=== PATIENT | female | born 1990 | race Caucasian/White ===

== ENCOUNTER → 2018-12-18 08:55 | Outpatient (CLI) | payer OTHER, SELFPAY ==
[2017-04-26 20:30] VITALS: BMI 30.9
[2018-12-18 10:13] LABS: Erythrocyte Sedimentation Rate 4 mm/hr (0-20)
[2018-12-18 10:15] LABS: Absolute Lymphocyte Count 2.41 X10^3/ul (0.83-4.51); Absolute Neutrophil Count 5.9 X10^3/uL (2.0-7.7); Basophil# 0.05 X10^3/uL; Basophil% 0.5 % (0-1); Eosinophil# 0.23 X10^3/uL; Eosinophils% 2.4 % (0-5); Hematocrit 38.2 % (37-47); Hemoglobin 12.3 g/dl (12.0-15.0); Lymphocyte # 2.41 X10^3/ul (4.0); Lymphocyte % 25.3 % (19-41); Mean Corp Hgb Conc 32.2 g/gl (32-36); Mean Corpuscular Hgb 29.9 pg (27.0-32.0); Mean Corpuscular Volume 92.7 fL (81-99); Mean Platelet Vol. 11.3 fl (6.2-12.0); Monocyte# 0.93 X10^3/uL; Monocyte% 9.8 % (0-10); Neutrophil % 61.9 % (47-70); Platelet Count 263 K/mm3 (150-450); RBC Distribution Width CV 13.8 % (11.6-14.6); RBC Distribution Width SD 46.9 fl (35.1-43.9); Red Blood Count 4.12 M/mm3 (4.2-5.4); White Blood Count 9.5 K/mm3 (4.4-11.0)
[2018-12-18 10:21] LABS: POSITIVE COUNT NO; POSITIVE DIFFERENTIAL NO; POSITIVE MORPHOLOGY NO
[2018-12-18 10:41] LABS: ALB/GLOB Ratio 1.1 RATIO (0.9-2.4); AST(SGOT) 16 U/L (15-37); Alanine Aminotransfer ALT/SGPT 20 U/L (13-56); Alkaline Phosphatase 65 U/L (45-117); Anion Gap 9 (5-15); BUN 15 mg/dL (7-18); BUN/Creat Ratio 18.2 RATIO (10-20); CRP < 2.90 mg/L (0.0-3.0); Calcium,Total 8.6 mg/dL (8.5-10.1); Chloride 106 mmol/L (98-107); Creatinine, Serum 0.82 mg/dL (0.55-1.02); EST Glomerular Filtration Rate 86 mL/min (>60); Est Glom Filt Rate - Afr Amer 104 mL/min (>60); Estradiol 295.8 pg/mL; Follicle Stimulating Hormone 5.3 mIU/mL; Free T3 2.7 pg/mL (2.18-3.98); Globulin 3.6 g/dL (2.2-4.2); Glucose 82 mg/dL (74-106); Iron 61 ug/dL (50-170); Luteinizing Hormone 18.8 mIU/mL; Potassium 3.7 mmol/L (3.5-5.1); Protein, Total 7.6 g/dL (6.4-8.2); Sodium Level 143 mmol/L (136-145); T4 Free Direct 0.81 ng/dL (0.76-1.46); Thyroid Stim Hormone (TSH) 0.95 uIU/mL (0.358-3.74)
[2018-12-18 10:43] LABS: Vitamin B12 1039 pg/mL (211-911); Vitamin D,25 Hydroxy 16.7 ng/mL (29.95-100.01)
== END ==
PROVIDERS: Family Provider Family Medicine; PCP Family Medicine; Referring Provider Family Medicine; Visit Provider Family Medicine
DX: N92.6 Irregular menstruation, unspecified (principal); R53.83 Other fatigue
CPT/HCPCS: 80053; 82306; 82533; 82607; 82670; 83001; 83002; 83540; 84403; 84439; 84443; 84481; 85025; 85652; 86140

== ENCOUNTER → 2019-07-24 11:41 | Outpatient (CLI) | payer OTHER, SELFPAY ==
[2017-04-26 20:30] VITALS: BMI 30.9
--- NOTE | 2019-07-24 11:46 | RAD_ITS ---
STUDY: X-RAY - CERVICAL SPINE REASON FOR EXAM: Female, 29 years old. Pain radiating to the left shoulder. TECHNIQUE: 5 view(s) of the cervical spine were obtained. COMPARISON: None FINDINGS: Normal anterior atlantoaxial articulation. Normal odontoid process. There is reversal of the normal cervical lordosis. Normal vertebral bodies and endplates. Normal disc space heights. Normal visualized intervertebral neuroforamina. The soft tissue structures are unremarkable. There is no demonstrated fracture of the cervical spine. RAD/Cerv Spine 4 or 5 Views IMPRESSION: Reversal of physiological cervical lordosis which may be due to muscular spasm. Otherwise normal x-ray examination of the visualized cervical spine. Electronically Signed: Dunia Veliz MD at 1:35 EST , Service support ,
--- NOTE | 2019-07-24 12:00 | RAD_ITS ---
STUDY: X-RAY - LEFT SHOULDER REASON FOR EXAM: Female, 29 years old. Pain. TECHNIQUE: 4 view(s) of the shoulder. COMPARISON: None. FINDINGS: Normal glenohumeral articulation. Normal acromioclavicular joint. Normal acromion. Normal humeral head and visualized proximal humerus. The soft tissue structures are unremarkable. There is no demonstrated fracture. Normal visualized pulmonary apex. RAD/Shoulder min 2 Views IMPRESSION: Normal x-ray examination of the shoulder. Electronically Signed: Dunia Veliz MD at 1:35 EST , Service support ,
== END ==
PROVIDERS: Family Provider Family Medicine; PCP Family Medicine; Referring Provider Nurse Practitioner Family; Visit Provider Nurse Practitioner Family
DX: M25.512 Pain in left shoulder (principal)
CPT/HCPCS: 72050; 73030

== ENCOUNTER → 2019-08-15 11:22 | Outpatient (CLI) | payer OTHER, SELFPAY ==
[2017-04-26 20:30] VITALS: BMI 30.9
--- NOTE | 2019-08-15 11:25 | RAD_ITS ---
STUDY: X-RAY CHEST REASON FOR EXAM: Female, 29 years old. Sharp stabbing chest pain. TECHNIQUE: 2 views COMPARISON: Prior chest radiograph of November 26, 2014 FINDINGS: The lungs are clear and expanded. There is no demonstrated pleural abnormality. Normal size heart. Normal mediastinum and sandi. Normal visualized pulmonary arteries. Normal visualized aortic arch and descending thoracic aorta. Normal visualized thoracic spine. Normal visualized ribs, clavicles, and shoulders. There is no demonstrated abnormality of the visualized soft tissue structures of the upper abdomen. RAD/Chest PA and Lateral IMPRESSION: Normal x-ray examination of the chest. Electronically Signed: Kristy Dc MD at 21:25 EST , Service support ,
[2019-08-15 14:11] LABS: Hematocrit 38.2 % (37-47); Hemoglobin 12.4 g/dL (12.0-15.0); Mean Corp Hgb Conc 32.5 g/dL (32-36); Mean Corpuscular Hgb 30.3 pg (27.0-32.0); Mean Corpuscular Volume 93.4 fL (81-99); Mean Platelet Vol. 12.1 fl (6.2-12.0); Platelet Count 252 K/mm3 (150-450); RBC Distribution Width CV 13.7 % (11.6-14.6); RBC Distribution Width SD 47.1 fl (35.1-43.9); Red Blood Count 4.09 M/mm3 (4.2-5.4); White Blood Count 7.5 K/mm3 (4.4-11.0)
[2019-08-15 14:25] LABS: D-Dimer Quantitative (DVT/PE) 0.75 FEU/ug/m (0.27-0.49)
[2019-08-15 14:30] LABS: ALB/GLOB Ratio 1.3 RATIO (0.9-2.4); AST(SGOT) 13 U/L (15-37); Alanine Aminotransfer ALT/SGPT 17 U/L (13-56); Albumin, Serum 4.3 g/dL (3.2-5.0); Alkaline Phosphatase 59 U/L (45-117); Anion Gap 5 (5-15); BUN 16 mg/dL (7-18); BUN/Creat Ratio 17.2 RATIO (10-20); Calcium,Total 8.6 mg/dL (8.5-10.1); Chloride 107 mmol/L (98-107); Creatinine, Serum 0.93 mg/dL (0.55-1.02); EST Glomerular Filtration Rate 75 mL/min (>60); Est Glom Filt Rate - Afr Amer 90 mL/min (>60); Globulin 3.4 g/dL (2.2-4.2); Glucose 78 mg/dL (74-106); Potassium 3.6 mmol/L (3.5-5.1); Protein, Total 7.7 g/dL (6.4-8.2); Sodium Level 139 mmol/L (136-145)
== END ==
PROVIDERS: Family Provider Family Medicine; PCP Family Medicine; Referring Provider Family Medicine; Visit Provider Family Medicine
DX: R07.9 Chest pain, unspecified (principal)
CPT/HCPCS: 36415; 71046; 80053; 84484; 85027; 85379

== ENCOUNTER → 2019-08-15 17:05 | Outpatient (CLI) | payer OTHER, SELFPAY ==
[2019-08-15 16:32] VITALS: BMI 28.5
--- NOTE | 2019-08-15 17:10 | CT_ITS ---
STUDY: CTA CHEST REASON FOR EXAM: Female, 29 years old. Elevated d-dimer and left chest wall pain for one week. Recent long distance travel. RADIATION DOSAGE (If Supplied By Facility): CTDIvol = ( 11.27 ) mGy, DLP = ( 350.43 ) mGycm TECHNIQUE: The examination was performed with the intravenous administration of IV 100mL Isovue-370. Post-processing of the angiographic images was performed, with multiplanar reformation and 3D reconstruction. Individualized dose optimization techniques were used for this CT. COMPARISON: Prior chest radiograph of August 15, 2019 FINDINGS: Normal enhancement of the main pulmonary artery and right and left pulmonary arteries. Normal enhancement of the bilateral peripheral pulmonary arteries. There is no demonstrated pulmonary embolism. Normal thoracic aorta and visualized great vessels. There is no demonstrated aortic dissection. Normal heart and pericardium. Normal mediastinum. Normal hilar regions. Normal visualized trachea and bronchi. The lungs are well expanded. Normal pulmonary parenchyma. Normal pleura. Normal chest wall structures. Normal osseous structures. Normal visualized upper abdomen. CT/CTA Chest W/WO Contrast IMPRESSION: Normal CTA chest examination, without a demonstrated pulmonary embolism or arterial dissection. Electronically Signed: Kristy Dc MD at 17:37 EST , Service support ,
== END ==
PROVIDERS: Family Provider Family Medicine; PCP Family Medicine; Visit Provider Family Medicine
DX: R79.89 Other specified abnormal findings of blood chemistry (principal)
CPT/HCPCS: 71275; Q9967; A4216

== ENCOUNTER 2019-10-07 16:30 | Outpatient (RCR) | payer OTHER, SELFPAY ==
[2019-08-15 16:32] VITALS: BMI 28.5
--- NOTE | 2019-09-12 13:54 | HP.PTEVAL_ITS ---
Patient's Visit Information FELICIA JAY is a 29 year old F referred to Physical Therapy by ANNA Morocho with a diagnosis of LEFT SHOULDER PAIN. Date of Evaluation: 09/11/19 Physical Therapist: Jf Calle, PT, Cert MDT, OCS - Visit Plan Frequency: 2x /Week Duration: 4 Weeks Plan: PT INTERVENTIONS ESTIM/CP/US,GRADED STRENGTHENING RTC/SCAPULAR EX'S ,POSTURAL STRENGTHENING - Subjective Findings: This 29 y/o female presents to physical therapy with left shoulder pain. Patient injuried intially injuried left shoulder scapular pulling a machine got locked caused pain . Symptoms progressing with pain global to shoulder and right lateral cervical with parathesia in left hands. Patient plans to see DR Arce due to mid thoracic pain and sternal chest. Patient symptoms worse lifting OH ,putting coat ,reaching back ,pulling patients. Alleviating factors heat. Patient had parathesia/tingling left hand . Patient pain affects sleeping. Patient denies DEL VALLE. Patient condition affects job demands ,housework t asks and ADL's with OH . Patient had x-rays of cervical and shoulder. Pateint condition affects QOL. SOCIAL: 3 childern. VOCATION: X-rays Tech - Pain Left Shoulder Pain Intensity (Out of 10): 6 Pain Intensity Range: 10 Left Scapula Pain Intensity (Out of 10): 6 Pain Intensity Range: 10 - Objective POSTURE: mild foward posture. NEURO: c/o parathesia/tingling ,reflexes 3/3 C5-6-7. PALPATION: tender middle traps,anterior shoulder. CERVICAL ROM: flexion WFL,extension/lateral flexion/rotation min loss,retraction WFL. AROM: shoulder flexion 155 degrees,abduction 150 150 degrees pain,ER 90 degrees pain with OP. MMT:RTC 4-/5 infraspinatous,supraspinatous mild pain,subscapular 4/5,middle traps 3/5 - Special Tests C/S Radiculapathy - Left Upper limb tension test: Negative C/S Radiculapathy - Right Upper limb tension test: Negative C/S Radiculapathy - Left Spurlings: Negative C/S Radiculapathy - Left Cervical distraction: Negative C/S Radiculapathy - Right Cervical distraction: Negative Sharp Sophia: Negative Vertebral Artery Test: Negative Alar Ligament Test: Negative L Shoulder External Rotation Lag Test - RC Tear: Negative L Shoulder Neer - Impingement: Positive L Shoulder Link Franki - Impingement: Positive L Shoulder Yeargasons - SLAP: Negative L Shoulder Apprehension Test - Anterior Instability: Positive L Shoulder Speeds Test - Labrum/Biceps: Negative L Shoulder Sulcus Sign - Inferior Laxity: Positive - Goals Goal 1:: Independant with HEP. Goal Time Frame: 4-6 Weeks Goal 2:: Inpendant with improved posture for ADL and job demnads. Goal Time Frame: 4-6 Weeks Goal 3:: Patient increase AROM left shoulder symmtrical right compared to left ithout pain. Goal Time Frame: 4-6 Weeks Goal 4:: Patient increase strength right RTC and scapular /deltoid 4/5 to improve function with OH activities abobe 90 degrees. Goal 5:: Patient improve quick dash score by 5-8 points > to improve> QOL. Goal Time Frame: 4-6 Weeks - Rehabilitation Potential Physical Therapy Diagnosis: Patient injuried left shoulder when machine that locked when pulling caused arms to pull subseqently increased pain ,weakness shoulder ,pain with AROM especially ER ,impairs activities above 90 degrees and job demnads as well cervical spine dysfunction and sternum pain which will be seen ny Dr Arce. Rehabilitation Potential: Good - Anticipated Interventions Patient/Client Instruction: Educate patient on: Condition, Plan of Care For the Purpose of:: To decrease pain, To increase ROM, To improve muscle performance and motor function, To improve ability to perform ADL's, To increase tolerance to activity/condition/position, To improve ability of physical actions for home/community/work/leisure, To improve health of tissue, To decrease soft tissue restriction, To increase flexibility/ROM, To reduce risk of recurrence, To prevent re-injury Therapeutic Exercise to Include: Strength training, Postural training, Scapular Strength/Stabilization Comment: RTC For the Purpose of:: To decrease pain, To increase ROM, To improve muscle performance and motor function, To improve ability to perform ADL's, To increase tolerance to activity/condition/position, To improve ability of physical actions for home/community/work/leisure, To improve gait and locomotor functions, To improve health of tissue, To decrease soft tissue restriction, To increase flexibility/ROM, To improve ability to perform tasks related to life management TENS: Yes IF ES: Yes Cryotherapy (ice pack, ice massage): Yes Thermo therapy (hot pack): Yes Ultrasound (thermal/non thermal): Yes For the Purpose of:: To decrease pain, To decrease swelling/inflammation, To improve nutrient delivery to tissue, To increase oxygenation perfusion, To improve health of tissue, To decrease soft tissue restriction Thank you for the opportunity to evaluate your patient. For Medicare and Medicare HMO plans, please review the plan of care and approve it. It will need to be FAXED BACK to us at [phone] for Medicare purposes. For Medicare only, by signing this I certify the plan of care. Please let me know if there are questions or concerns regarding this plan of care. Physician Signature: Date:
--- NOTE | 2019-12-31 12:37 | HP.PT.NRP ---
FELICIA JAY was seen in my office for initial evaluation on 09/11/19. The following Plan of Care was established for this patient: Initial Frequency: 2x /Week Initial Duration: 4 Weeks Patient/Client Instruction: Educate patient on: Condition, Plan of Care For the Purpose of:: To decrease pain, To increase ROM, To improve muscle performance and motor function, To improve ability to perform ADL's, To increase tolerance to activity/condition/position, To improve ability of physical actions for home/community/work/leisure, To improve health of tissue, To decrease soft tissue restriction, To increase flexibility/ROM, To reduce risk of recurrence, To prevent re-injury Therapeutic Exercise to Include: Strength training, Postural training, Scapular Strength/Stabilization For the Purpose of:: To decrease pain, To increase ROM, To improve muscle performance and motor function, To improve ability to perform ADL's, To increase tolerance to activity/condition/position, To improve ability of physical actions for home/community/work/leisure, To improve gait and locomotor functions, To improve health of tissue, To decrease soft tissue restriction, To increase flexibility/ROM, To improve ability to perform tasks related to life management TENS: Yes IF ES: Yes Cryotherapy (ice pack, ice massage): Yes Thermo therapy (hot pack): Yes Ultrasound (thermal/non thermal): Yes For the Purpose of:: To decrease pain, To decrease swelling/inflammation, To improve nutrient delivery to tissue, To increase oxygenation perfusion, To improve health of tissue, To decrease soft tissue restriction This patient was last seen in our office . Pertinent comments regarding their Physical therapy will appear below: Patient seen for left shoulder pain for RTC/SCAPULAR strengthening,postural ex's and modalties,Patient had MRI which is negative. At this point I will be discontinuing this patient from physical therapy. I would be happy to see this patient again in the future if found appropriate by the physician. Thank you! Jf Calle, PT, Cert MDT, OCS
== END 2019-10-07 19:00 | disposition home or self-care (01) ==
LOC: PT 16:30
PROVIDERS: Family Provider Family Medicine; PCP Family Medicine; Referring Provider Nurse Practitioner Family; Visit Provider Nurse Practitioner Family
DX: M25.512 Pain in left shoulder (principal)
CPT/HCPCS: 97014; 97110; 97161; G0283

== ENCOUNTER → 2019-10-18 13:59 | Outpatient (CLI) | payer OTHER, SELFPAY ==
[2019-08-15 16:32] VITALS: BMI 28.5
--- NOTE | 2019-10-18 14:30 | MRI_ITS ---
STUDY: MRI LEFT SHOULDER REASON FOR EXAM: Left shoulder pain, decreased strength, symptoms for 3 months, pulling injury. TECHNIQUE: Standardized fat and water weighted pulse sequences were obtained in all 3 orthogonal planes. COMPARISON: Radiographs 07/24/2019. FINDINGS: Normal supraspinatus tendon. Normal infraspinatus tendon. Normal subscapularis tendon. Normal teres minor tendon. Normal supraspinatus muscle. Normal infraspinatus muscle. Normal subscapularis muscle. Normal teres minor muscle. Normal glenohumeral articulation. Normal humeral head and visualized proximal humerus. Normal biceps labral complex. Normal intracapsular long biceps tendon. Normal labrum. Normal capsulo- ligamentous complex. Normal acromioclavicular articulation. There is a Type II morphology (curved), with a neutral orientation. There is no subacromial-subdeltoid bursal fluid. Normal visualized coracohumeral and coracoacromial ligaments. Normal deltoid muscle. Normal trapezius muscle. MRI/Upper Ext Joint Only(Routine) IMPRESSION: Normal MRI of the left shoulder. Electronically Signed: Gómez Franklin MD at 15:12 EST Tel , Service support ,
== END ==
PROVIDERS: PCP Family Medicine; Referring Provider Family Medicine; Visit Provider Family Medicine
DX: M25.512 Pain in left shoulder (principal)
CPT/HCPCS: 73221

== ENCOUNTER → 2020-04-15 | Outpatient (CLI) | payer OTHER, SELFPAY ==
[2020-04-15 13:14] VITALS: BMI 28.5
[2020-04-20 20:32] LABS: HPV APTIMA, High Risk Negative (Negative)
== END | disposition home or self-care (01) ==
LOC: LABSPEC 16:57
PROVIDERS: PCP Family Medicine; Referring Provider Obstetrics & Gynecology; Visit Provider Obstetrics & Gynecology
DX: Z12.4 Encounter for screening for malignant neoplasm of cervix (principal)
CPT/HCPCS: 87624; 88175; G0145

== ENCOUNTER → 2021-03-29 13:13 | Outpatient (CLI) | payer OTHER, SELFPAY ==
--- NOTE | 2021-03-29 13:18 | RAD_ITS ---
STUDY: X-RAY - RIGHT SHOULDER REASON FOR EXAM: Female, 30 years old. pain TECHNIQUE: 4 view(s) of the shoulder. COMPARISON: None. FINDINGS: Normal glenohumeral articulation. Normal acromioclavicular joint. Normal acromion. Normal humeral head and visualized proximal humerus. The soft tissue structures are unremarkable. Normal visualized pulmonary apex. RAD/Shoulder min 2 Views IMPRESSION: Normal x-ray examination of the shoulder. Electronically Signed: Elijah Macrus MD at 7:39 EDT Tel , Service support ,
== END ==
PROVIDERS: PCP Family Medicine; Referring Provider Orthopaedic Surgery; Visit Provider Orthopaedic Surgery
DX: M25.511 Pain in right shoulder (principal)
CPT/HCPCS: 73030

== ENCOUNTER 2021-04-05 17:45 | Inpatient (IN) | payer OTHER, SELFPAY ==
[2021-03-29 13:32] VITALS: BMI 28.5
[2021-04-05 17:45] VITALS: BP 112/78; PULSE 81; RESP 18; TEMP 36.4; O2SAT 89; O2SAT 96; BMI 25.2
--- NOTE | 2021-04-05 18:05 | RAD_ITS ---
HISTORY: SOB EXAMINATION/TECHNIQUE: XR Chest 1 View: 1 view COMPARISON: 08/15/19 FINDINGS: LINES/DEVICES: None. LUNGS: Patchy bilateral airspace opacities without consolidation or pleural effusion. MEDIASTINUM AND CARDIOVASCULAR STRUCTURES: Cardiac silhouette not enlarged. Central airways and mediastinal contour are unremarkable. BONES AND SOFT TISSUES: No acute bony abnormalities. RAD/Chest 1 View IMPRESSION: Bilateral airspace disease suspicious for pneumonia including atypical or viral pneumonia. Recommend short-term follow-up to resolution. at 1829 Reported and signed by: Curly Zapata MD Electronically Signed: Curly Zapata MD at 18:27 EDT Tel , Service support ,
[2021-04-05 18:43] LABS: Absolute Lymphocyte Count 1.52 X10^3/uL (0.83-4.51); Absolute Neutrophil Count 4.1 X10^3/uL (2.0-7.7); Basophil# 0.04 X10^3/uL; Basophil% 0.6 % (0-1); Eosinophil# 0.06 X10^3/uL; Eosinophils% 0.9 % (0-5); Hematocrit 44.2 % (37-47); Hemoglobin 14.3 g/dL (12.0-15.0); Lymphocyte # 1.52 X10^3/ul (0.83-4.51); Lymphocyte % 23.5 % (19-41); Mean Corp Hgb Conc 32.4 g/dL (32-36); Mean Corpuscular Hgb 30.2 pg (27.0-32.0); Mean Corpuscular Volume 93.4 fL (81-99); Mean Platelet Vol. 9.9 fl (6.2-12.0); Monocyte# 0.67 X10^3/uL; Monocyte% 10.3 % (0-10); NRBC Flagged by Analyzer 0 % (0-5); Neutrophil # 4.06 X10^3/uL (2.7-7.7); Neutrophil % 62.7 % (47-70); POSITIVE MORPHOLOGY YES; Platelet Count 301 K/mm3 (150-450); RBC Distribution Width CV 13.2 % (11.6-14.6); RBC Distribution Width SD 45.2 fl (35.1-43.9); Red Blood Count 4.73 M/mm3 (4.2-5.4); White Blood Count 6.5 K/mm3 (4.4-11.0)
[2021-04-05 18:45] LABS: Differential Indicated SCAN CRITERIA MET
[2021-04-05 19:01] LABS: ALB/GLOB Ratio 0.7 RATIO (0.9-2.4); AST(SGOT) 42 U/L (15-37); Alanine Aminotransfer ALT/SGPT 122 U/L (13-56); Albumin, Serum 3.4 g/dL (3.2-5.0); Alkaline Phosphatase 99 U/L (45-117); Anion Gap 4 (5-15); BUN 20 mg/dL (7-18); BUN/Creat Ratio 28.5 RATIO (10-20); Calcium,Total 8.6 mg/dL (8.5-10.1); Chloride 109 mmol/L (98-107); EST Glomerular Filtration Rate 102 mL/min (>60); Est Glom Filt Rate - Afr Amer 124 mL/min (>60); Estimated Creatinine Clearance 99.63 ml/min; Globulin 4.7 g/dL (2.2-4.2); Glucose 91 mg/dL (74-106); Potassium 3.8 mmol/L (3.5-5.1); Protein, Total 8.1 g/dL (6.4-8.2); Sodium Level 141 mmol/L (136-145)
[2021-04-05 19:09] LABS: Differential Comment SCANNED
[2021-04-05 19:55] VITALS: BP 105/68; PULSE 62; RESP 16; O2SAT 97
[2021-04-05] MEDS: Ceftriaxone 1 GM/50 ML BAG IV (20:39)
--- NOTE | 2021-04-05 20:47 | EDS_ITS ---
HPI History of Present Illness Chief Complaint: Shortness of Breath Narrative Narrative: Patient presents with weakness and shortness of breath for the past few days. No fevers chills, there is a cough. No pleuritic component. No lower extremity edema or calf pain. She has generalized weakness especially when she tries to ambulate. [facility] Medical History (Updated 04/05/21 @ 22:[address] Cali Barboza MD) Bone fracture Home Medications cholecalciferol (vitamin D3) 25 mcg (1,000 unit) capsule 25 mcg PO DAILY 03/29/21 [History Last Taken Unknown] meloxicam 7.5 mg tablet 7.5 mg PO DAILY 03/29/21 [History Last Taken Unknown] methylprednisolone 4 mg tablets in a dose pack See Rx Instructions PO PER PKG DIR #21 tab 03/29/21 [Rx Last Taken Unknown] multivitamin 1 tab PO DAILY 03/29/21 [History Last Taken Unknown] Allergy/AdvReac Type Severity Reaction Status Date / Time No Known Allergies Allergy Verified 04/01/21 09:26 Family History Mother Heart disease Cancer lung Father Heart disease Kidney disease Cancer Surgical History Encounter for tubal ligation History of delivery [place] teeth extracted Social History (Updated 10/20/20 @ 16:[address] Abril Arce, [place]) Smoking Status: Never smoker alcohol intake: current alcohol intake frequency: holidays/special occasions only details: social substance use type: does not use caffeine: Yes what type of physical activity do you participate in: walking, running, aerobics and weight training frequency: 3-4 times per week seatbelt use: always do you feel safe at home: Yes additional social history: [place]- Patient works at [employer] Radiology ROS ROS ED ROS Narrative Past medical history: Reviewed Medications: Reviewed Social history: Noncontributory Review of systems: All systems negative except as indicated General: No fever. Generalized weakness as in HPI Eyes: No visual changes ENT: No upper airway congestion, normal voice Neck: No neck pain Cardiovascular: No chest pain Respiratory: Shortness of breath especially exertional shortness of breath. Gastrointestinal: No abdominal pain, nausea vomiting or diarrhea Genitourinary: No dysuria Musculoskeletal: Denies myalgias no difficulty with ambulation Skin: No rash Neurological: No memory loss, confusion or any focal weakness Psych: No recent behavioral changes Hematologic: No easy bleeding or easy bruising EXAM Physical Exam Narrative Exam Narrative: Physical exam General: Patient appears in some distress but she does not appear toxic. Head: Normocephalic, Atraumatic Eyes: Conjunctiva not pale ENT: Moist mucous membranes Neck: Supple, Nontender, No lymphadenopathy Cardiovascular: Regular rate, Regular rhythm Respiratory: Coarse bilateral breath sounds Abdomen: Soft, Nontender, Nondistended Back: Nontender, Normal Inspection. Negative for: CVA tenderness Extremities: Nontender, No edema Skin: Normal color, No rash Neurological: Alert, Normal Strength, Normal Sensation Psychological: Normal affect Const Vital Signs: 04/05/21 17:45 04/05/21 19:55 04/05/21 21:18 Temperature 97.6 F L Temperature Source Temporal Pulse Rate 81 62 60 Respiratory Rate 18 16 18 Respiratory Effort Short of Breath Respiratory Pattern Normal Blood Pressure 112/78 105/68 97/69 Blood Pressure Mean 89 80 78 Pulse Ox 89 97 97 Oxygen Delivery Method Room Air Room Air Room Air MDM MDM MDM Narrative Medical decision making narrative: Patient is found to have bilateral pneumonia, initially she was hypoxic, I treated her with IV antibiotics, she likely has a viral pneumonia but because of the hypoxia I want to be safe until further tests can be obtained. Patient will be admitted for both pneumonia and hypoxia. Her initial Covid was negative. Lab Data Labs: Laboratory Results - last 24 hr 04/05/21 04/05/21 18:35 18:35 WBC 6.5 RBC 4.73 Hgb 14.3 Hct 44.2 MCV 93.4 MCH 30.2 MCHC 32.4 RDW Std Deviation 45.2 H RDW Coeff of Robert 13.2 Plt Count 301 MPV 9.9 Immature Gran % (Auto) 2.000 H Neut % (Auto) 62.7 Lymph % (Auto) 23.5 [place] % (Auto) 10.3 H Eos % (Auto) 0.9 Baso % (Auto) 0.6 Absolute Neuts (auto) 4.1 Absolute Lymphs (auto) 1.52 Nucleated RBC % 0 Differential Comment SCANNED Sodium 141 Potassium 3.8 Chloride 109 H Carbon Dioxide 28.0 Anion Gap 4 L BUN 20 H Creatinine 0.70 Estim Creat Clear Calc 99.63 Est GFR (MDRD) Af Amer 124 Est GFR (MDRD) Non-Af 102 BUN/Creatinine Ratio 28.5 H Glucose 91 Calcium 8.6 Total Bilirubin 0.40 AST 42 H ALT 122 H Alkaline Phosphatase 99 Total Protein 8.1 Albumin 3.4 Globulin 4.7 H Albumin/Globulin Ratio 0.7 L Radiography Diagnostic Testing: Radiology Impression Chest X-Ray 04/05/21 18:05 IMPRESSION: Bilateral airspace disease suspicious for pneumonia including atypical or viral pneumonia. Recommend short-term follow-up to resolution. at 1829 Reported and signed by: Curly Zapata MD Electronically Signed: Curly Zapata MD at 18:27 EDT Tel , Service support , Discharge Plan Triage Chief Complaint: Shortness of Breath ED Provider: Cali Barboza Dx/Rx/DC Orders Clinical Impression: Pneumonia, Hypoxia Prescriptions: No Action meloxicam 7.5 mg tablet 7.5 mg PO DAILY RF: 0 multivitamin [Multiple Vitamins] Tablet 1 tab PO DAILY RF: 0 cholecalciferol (vitamin D3) 25 mcg (1,000 unit) capsule 25 mcg PO DAILY RF: 0 methylprednisolone [Medrol ([place])] 4 mg tablets,dose pack See Rx Instructions PO PER PKG DIR Qty: 21 RF: 0 Primary Care Provider: Tan Hill Referrals: Tan Hill MD [Primary Care Provider] - Disposition Disposition: Acute Care Hospital [facility]
[2021-04-05 21:18] VITALS: BP 97/69; PULSE 60; RESP 18; O2SAT 97
[2021-04-05] MEDS: Acetaminophen 500 MG Tablet 1000 MG PO (22:54)
[2021-04-05 22:55] VITALS: BP 100/68; PULSE 61; RESP 18; TEMP 37.1; O2SAT 97
--- NOTE | 2021-04-05 23:06 | HP.PCM_ITS ---
HPI - General HPI Narrative FELICIA JAY, is a 30 F who presents increasing shortness of breath over the past 2 days. The patient is unvaccinated to COVID-19 virus at this time and her rapid antigen test initially was negative. At this time a PCR test is pending. Chest x-ray reveals bilateral pneumonia that is atypical and possibly viral. CBC shows no elevation white blood cell count with no differential shift. The patient is hypoxic and drops to 82% on room air with ambulation. But was able to maintain 99% on 2 L nasal cannula. The patient was covered for community- acquired pneumonia and will be admitted to general medical floor for treatment and appropriately sent once the PCR test is final. [facility] Medical History (Updated 04/05/21 @ 22:[address] Cali Barboza MD) Bone fracture Home Medications cholecalciferol (vitamin D3) 25 mcg (1,000 unit) capsule 25 mcg PO DAILY 03/29/21 [History Last Taken Unknown] meloxicam 7.5 mg tablet 7.5 mg PO DAILY 03/29/21 [History Last Taken Unknown] methylprednisolone 4 mg tablets in a dose pack See Rx Instructions PO PER PKG DIR #21 tab 03/29/21 [Rx Last Taken Unknown] multivitamin 1 tab PO DAILY 03/29/21 [History Last Taken Unknown] Allergy/AdvReac Type Severity Reaction Status Date / Time No Known Allergies Allergy Verified 04/01/21 09:26 Family History Mother Heart disease Cancer lung Father Heart disease Kidney disease Cancer Surgical History Encounter for tubal ligation History of delivery Trout teeth extracted Social History (Updated 10/20/20 @ 16:[address] Abril Arce, [place]) Smoking Status: Never smoker alcohol intake: current alcohol intake frequency: holidays/special occasions only details: social substance use type: does not use caffeine: Yes what type of physical activity do you participate in: walking, running, aerobics and weight training frequency: 3-4 times per week seatbelt use: always do you feel safe at home: Yes additional social history: [place]- Patient works at [employer] Be[employer] Constitutional Constitutional: Reports fatigue and fever(s); Denies chills Eyes Eyes: Denies change in vision ENT HEENT: Denies abnormal hearing Cardiovascular Cardiovascular: Denies chest pain Respiratory/Chest Respiratory/Chest: Reports cough and shortness of breath at rest Gastrointestinal Gastrointestinal: Denies abdominal pain Genitourinary Genitourinary: Denies dysuria Musculoskeletal Musculoskeletal: Denies back pain Integumentary Integumentary: Denies dry skin Psychiatric Psychiatric: Denies anxiety Vital Signs Vital Signs Vital Signs: 04/05/21 17:45 04/05/21 19:55 04/05/21 21:18 Temperature 97.6 F L Temperature Source Temporal Pulse Rate 81 62 60 Respiratory Rate 18 16 18 Respiratory Effort Short of Breath Respiratory Pattern Normal Blood Pressure 112/78 105/68 97/69 Blood Pressure Mean 89 80 78 Pulse Ox 89 97 97 Oxygen Delivery Method Room Air Room Air Room Air Oxygen Flow Rate (L/min) 04/05/21 22:55 Temperature 98.7 F Temperature Source Oral Pulse Rate 61 Respiratory Rate 18 Respiratory Effort Respiratory Pattern Blood Pressure 100/68 Blood Pressure Mean 78 Pulse Ox 97 Oxygen Delivery Method Nasal Cannula Oxygen Flow Rate (L/min) 2 Weight Weight: 146 lb 13.246 oz Body Mass Index (BMI) 25.2 Physical Exam Const oriented x3 HEENT normocephalic and head/scalp atraumatic Neck supple Lymph Lymphatic: no lymphadenopathy noted Resp Auscultation: diminished lung sounds bilateral Cardio regular rhythm, S1 normal heart sound and S2 normal heart sound GI normal to inspection, nondistended, normoactive bowel sounds Extremity normal capillary refill Skin General Skin Exam: turgor normal Neuro CN's II-XII intact bilaterally Psych affect normal Results Lab / Micro Data Result Diagrams: 04/05/21 18:35 04/05/21 18:35 Labs: Laboratory Results - last 24 hr 04/05/21 18:35: WBC 6.5, RBC 4.73, Hgb 14.3, Hct 44.2, MCV 93.4, MCH 30.2, MCHC 32.4, RDW Std Deviation 45.2 H, RDW Coeff of Robert 13.2, Plt Count 301, MPV 9.9, Immature Gran % (Auto) 2.000 H, Neut % (Auto) 62.7, Lymph % (Auto) 23.5, [place] % (Auto) 10.3 H, Eos % (Auto) 0.9, Baso % (Auto) 0.6, Absolute Neuts (auto) 4.1, Absolute Lymphs (auto) 1.52, Nucleated RBC % 0, Differential Comment SCANNED 04/05/21 18:35: Sodium 141, Potassium 3.8, Chloride 109 H, Carbon Dioxide 28.0, Anion Gap 4 L, BUN 20 H, Creatinine 0.70, Estim Creat Clear Calc 99.63, Est GFR (MDRD) Af Amer 124, Est GFR (MDRD) Non-Af 102, BUN/Creatinine Ratio 28.5 H, Glucose 91, Calcium 8.6, Total Bilirubin 0.40, AST 42 H, ALT 122 H, Alkaline Phosphatase 99, Total Protein 8.1, Albumin 3.4, Globulin 4.7 H, Albumin/Globulin Ratio 0.7 L Micro: Microbiology 04/05/21 20:18 Mucosa - Nose SARS-CoV-2 Antigen (Rapid) - Final Radiology Impression Chest X-Ray 04/05/21 18:05 IMPRESSION: Bilateral airspace disease suspicious for pneumonia including atypical or viral pneumonia. Recommend short-term follow-up to resolution. at 1829 Reported and signed by: Curly Zapata MD Electronically Signed: Curly Zapata MD at 18:27 EDT Tel , Service support , Assessment & Plan Assessment/Plan (1) Pneumonia: (2) Hypoxia: PLAN: 1. Pneumonia?atypical admit patient to general medical floor Place patient on IV Levaquin 500 mg daily, DuoNeb INH every 4 hours along with Solu- Medrol every 8 hours PCR test for COVID-19 virus is pending at this time however rapid antigen test was negative.? 2. Hypoxia?continue oxygen per protocol 3. DVT prophylaxis?low molecular weight heparin Charges/Coding Visit Charges Inpatient E&M: 35498 Init Hosp L2
[2021-04-05 23:23] VITALS: BP 98/63; PULSE 50; RESP 18; O2SAT 99
[2021-04-06] VITALS (12 sets, daily range): BP systolic 95–116; BP diastolic 56–70; PULSE 52–75; RESP 16–20; TEMP 36.2–36.7; O2SAT 93–98; BMI 25.2
[2021-04-06] MEDS: 0.9% Saline Lock 10 ML Syringe IV ×5 (01:45→18:02)
[2021-04-06 06:49] LABS: Absolute Lymphocyte Count 1.76 X10^3/uL (0.83-4.51); Absolute Neutrophil Count 1.6 X10^3/uL (2.0-7.7); Basophil# 0.02 X10^3/uL; Basophil% 0.5 % (0-1); Eosinophil# 0.09 X10^3/uL; Eosinophils% 2.2 % (0-5); Hematocrit 39.8 % (37-47); Hemoglobin 12.7 g/dL (12.0-15.0); Lymphocyte # 1.76 X10^3/ul (0.83-4.51); Lymphocyte % 42.4 % (19-41); Mean Corp Hgb Conc 31.9 g/dL (32-36); Mean Corpuscular Volume 94.1 fL (81-99); Mean Platelet Vol. 9.9 fl (6.2-12.0); Monocyte# 0.64 X10^3/uL; Monocyte% 15.4 % (0-10); NRBC Flagged by Analyzer 0 % (0-5); Neutrophil # 1.55 X10^3/uL (2.7-7.7); Neutrophil % 37.3 % (47-70); POSITIVE MORPHOLOGY YES; Platelet Count 279 K/mm3 (150-450); RBC Distribution Width CV 13.3 % (11.6-14.6); RBC Distribution Width SD 46.2 fl (35.1-43.9); Red Blood Count 4.23 M/mm3 (4.2-5.4); White Blood Count 4.2 K/mm3 (4.4-11.0)
[2021-04-06 06:53] LABS: Differential Indicated SCAN CRITERIA MET
[2021-04-06 07:07] LABS: Anion Gap 3 (5-15); BUN 24 mg/dL (7-18); BUN/Creat Ratio 38.1 RATIO (10-20); Calcium,Total 8.4 mg/dL (8.5-10.1); Chloride 108 mmol/L (98-107); Creatinine, Serum 0.63 mg/dL (0.55-1.02); EST Glomerular Filtration Rate 116 mL/min (>60); Est Glom Filt Rate - Afr Amer 140 mL/min (>60); Glucose 110 mg/dL (74-106); Potassium 3.6 mmol/L (3.5-5.1); Sodium Level 140 mmol/L (136-145)
[2021-04-06] MEDS: Ipratropium/Albuterol Sulfate 3 ML AMPUL.NEB INHALATION ×3 (07:44→15:31)
[2021-04-06] MEDS: levoFLOXacin IV 500 MG/100 ML BAG 100 MG IV (10:57)
[2021-04-06] MEDS: Enoxaparin 40 MG/0.4 ML Syringe SC (10:58)
[2021-04-06] MEDS: Acetaminophen 325 MG Tablet 650 MG PO ×2 (11:35→18:02)
--- NOTE | 2021-04-06 11:59 | PCM.PN.HOSP ---
Subjective Subjective Short of breath with exertion. Objective Data Objective Data Vital Signs: Vital Signs Temp Pulse Resp BP Pulse Ox 36.2 C L 68 20 H 100/57 L 93 04/06/21 10:54 04/06/21 11:46 04/06/21 11:46 04/06/21 10:54 04/06/21 10:54 Oxygen Flow Rate (L/min) 2 Oxygen Delivery Method Room Air Weight: 66.6 kg Body Mass Index (BMI) 25.2 Intake & Output: Intake and Output for Last 24 Hours 04/04/21 04/05/21 04/06/21 23:59 23:59 23:59 Intake Total 305 / 305 100 / 100 Balance 305 / 305 100 / 100 Lab / Micro Data Result Diagrams: 04/06/21 06:34 04/06/21 06:34 Labs: Laboratory Results - last 24 hr 04/05/21 18:35: WBC 6.5, RBC 4.73, Hgb 14.3, Hct 44.2, MCV 93.4, MCH 30.2, MCHC 32.4, RDW Std Deviation 45.2 H, RDW Coeff of Robert 13.2, Plt Count 301, MPV 9.9, Immature Gran % (Auto) 2.000 H, Neut % (Auto) 62.7, Lymph % (Auto) 23.5, [place] % (Auto) 10.3 H, Eos % (Auto) 0.9, Baso % (Auto) 0.6, Absolute Neuts (auto) 4.1, Absolute Lymphs (auto) 1.52, Nucleated RBC % 0, Differential Comment SCANNED 04/05/21 18:35: Sodium 141, Potassium 3.8, Chloride 109 H, Carbon Dioxide 28.0, Anion Gap 4 L, BUN 20 H, Creatinine 0.70, Estim Creat Clear Calc 99.63, Est GFR (MDRD) Af Amer 124, Est GFR (MDRD) Non-Af 102, BUN/Creatinine Ratio 28.5 H, Glucose 91, Calcium 8.6, Total Bilirubin 0.40, AST 42 H, ALT 122 H, Alkaline Phosphatase 99, Total Protein 8.1, Albumin 3.4, Globulin 4.7 H, Albumin/Globulin Ratio 0.7 L 04/05/21 22:55: COVID-19 (GUI) Detected 04/06/21 06:34: WBC 4.2 L, RBC 4.23, Hgb 12.7, Hct 39.8, MCV 94.1, MCH 30.0, MCHC 31.9 L, RDW Std Deviation 46.2 H, RDW Coeff of Robert 13.3, Plt Count 279, MPV 9.9, Immature Gran % (Auto) 2.200 H, Neut % (Auto) 37.3 L, Lymph % (Auto) 42.4 H, [place] % (Auto) 15.4 H, Eos % (Auto) 2.2, Baso % (Auto) 0.5, Absolute Neuts (auto) 1.6 L, Absolute Lymphs (auto) 1.76, Nucleated RBC % 0 04/06/21 06:34: Sodium 140, Potassium 3.6, Chloride 108 H, Carbon Dioxide 29.0, Anion Gap 3 L, BUN 24 H, Creatinine 0.63, Estim Creat Clear Calc 110.70, Est GFR (MDRD) Af Amer 140, Est GFR (MDRD) Non-Af 116, BUN/Creatinine Ratio 38.1 H, Glucose 110 H, Calcium 8.4 L Micro: Microbiology 04/05/21 20:18 Mucosa - Nose SARS-CoV-2 Antigen (Rapid) - Final Radiography Diagnostic Testing: Radiology Impression Chest X-Ray 04/05/21 18:05 IMPRESSION: Bilateral airspace disease suspicious for pneumonia including atypical or viral pneumonia. Recommend short-term follow-up to resolution. at 1829 Reported and signed by: Curly Zapata MD Electronically Signed: Curly Zapata MD at 18:27 EDT Tel , Service support , Physical Exam Const alert Neck no lymphadenopathy Resp normal respiratory effort, no retractions, no use of accessory muscles and clear to auscultation bilaterally Cardio regular rate, regular rhythm, S1 normal heart sound and S2 normal heart sound GI normal to inspection, nondistended, normoactive bowel sounds, non-tender and non-distended Assessment & Plan Assessment/Plan (1) COVID-19: PLAN: 1. COVID 19 pneumonia Onset 04/03 On dexamethasone Advised isolation for her family and for them to be tested Patient will need isolation for 20 days from symptom onset DC levofloxacin 2. VTE prophylaxis: LMWH Charges/Coding Visit Charges Inpatient E&M: 63241 Subs Hosp L2
[2021-04-06 12:37] LABS: Internal QC Validated? YES +Cl - CLEAR BKGD; Pregnancy, Serum, hCG Quali. NEGATIVE Negative
[2021-04-06] MEDS: dexAMETHasone 2 MG TABLET 6 MG PO (12:50)
--- NOTE | 2021-04-06 13:31 | CASEMGMT ---
CHRISTY FLORES Assessment: Face to Face with pt for initial transition planning/care coordination assessment. CHRISTY FLORES introduced self and role at [facility], pt voices understanding and consents to assessment. Pt is A/O x4 and answers all questions appropriately at this time. Pt lying in bed with O2 on in no distress. Care providers, pharmacy, and demographics verified/updated. Admitting Dx: pna, covid 19 PCP:Liz Specialists:Pt denies having any specialists. Preferred Pharmacy: [facility] Retail Insurance: [facility] [place] [facility] Prescription Benefit: yes LW/HPOA: Pt denies having LW/DPOA. LNOK: Braxton Daigle, Living Arrangements: Pt lives with and 3 children in a two story house with 4 steps to enter. Pt states she is I in ADL's and denies concerns at home. Transportation: Pt drives self and denies concerns with transportation. DME/HHC/SNF: Pt denies DME, hx of HHC or SNF stays. Pt was tested for covid at [facility]. Patient verbally was provided a list of local in network DME providers. Patient does not have a preference should she need home O2. Pt is aware of quarantining guidelines. She states she is able to be from the rest of her family with a separate bathroom and bedroom. Her is able to get her groceries and supplies. She denies any questions regarding quarantine. Pt states no concerns with going home at time of dc. Pt states no further concerns/needs. CM to follow. Advised pt to ask CM if any further question/concerns/needs arise, voices understanding. Pt Goal: Home Plan: Home with family support
[2021-04-06] MEDS: Ibuprofen 600 MG Tablet PO (16:30)
[2021-04-06] MEDS: Ketorolac 15 MG/ML Vial IV (18:01)
[2021-04-07 03:34] VITALS: BP 98/50; PULSE 65; RESP 16; TEMP 36.9; O2SAT 96
[2021-04-07 05:00] VITALS: O2SAT 96
[2021-04-07 07:33] VITALS: PULSE 54; RESP 18; O2SAT 95
[2021-04-07] MEDS: Ipratropium/Albuterol Sulfate 3 ML AMPUL.NEB INHALATION ×2 (07:33→11:04)
[2021-04-07 08:33] VITALS: BP 108/61; PULSE 91; RESP 18; TEMP 36.5; O2SAT 96
[2021-04-07 08:38] VITALS: O2SAT 89; O2SAT 92; O2SAT 96
[2021-04-07] MEDS: dexAMETHasone 2 MG TABLET 6 MG PO (08:46)
[2021-04-07] MEDS: Enoxaparin 40 MG/0.4 ML Syringe SC (08:46)
--- NOTE | 2021-04-07 09:12 | PCM.DC ---
Discharge Instructions Diet Discharge Diet: No restrictions Activity Return to work on:: 04/20/21 Additional Activity Instructions:: Self isolate for at least 20 days since symptoms began (04/01/2021-04/20/2021) AND at least one day (24 hours) have passed since resolution of fever without the use of fever-reducing agents AND improvement of symptoms (e.g., cough, shortness of breath) When around people in the same room, wear a face mask. Individuals also in the room should wear a mask. If possible, use a different bathroom and bedroom. Perform adequate hand hygiene. Avoid sharing dishes, glasses, etc. Family members with close contact with you and/or positive for COVID-19 should follow these instructions. And quarantine for 10 days. Dressing / Incision Call your doctor if you observe: Fever of 101 or Higher and Shortness of breath Follow Up Care Test Results: Test results from this visit will be discussed in further detail at your follow-up appointment, if applicable. Discharge Plan Admission Admit Date/Time: 04/05/21 23:14 Primary Reason for Your Visit: COVID-19 Attending Provider: Guillermo Charles Primary Care Provider: Tan Hill Discharge Orders/Prescriptions Prescriptions: New acetaminophen [Tylenol] 325 mg Tablet 500 mg PO Q4H PRN PRN (Reason: Pain 1-10 Or Fever) Qty: 0 RF: 0 dexamethasone 2 mg Tablet 6 mg PO DAILY Qty: 8 RF: 0 ibuprofen 200 mg capsule 600 mg PO Q6H PRN (Reason: pain. headache) Qty: 1 RF: 0 Continued multivitamin [Multiple Vitamins] Tablet 1 tab PO DAILY RF: 0 cholecalciferol (vitamin D3) 25 mcg (1,000 unit) capsule 25 mcg PO DAILY RF: 0 Referrals / Follow Up: Tan Hill MD [Primary Care Provider] - Within 2 Weeks Disposition Disposition (needs filled in before D/C Order can be placed): Home, Self Care
--- NOTE | 2021-04-07 09:18 | DS.PCM_ITS ---
Providers Date of Admission: 04/05/21 Primary Care Physician: Dr. Tan Hill MD Reason For Visit: PNEUMONIA Diagnosis Discharge Diagnosis (1) COVID-19: Status: Acute Code(s): U07.1 - COVID-19 Medications at Discharge Home Medications cholecalciferol (vitamin D3) 25 mcg (1,000 unit) capsule 25 mcg PO DAILY 03/29/21 multivitamin 1 tab PO DAILY 03/29/21 acetaminophen [Tylenol] 500 mg PO Q4H PRN PRN #0 tab 04/07/21 dexamethasone 6 mg PO DAILY #8 tab 04/07/21 ibuprofen 600 mg PO Q6H PRN #1 cap 04/07/21 Hospital Course Operations None Procedures None Summary of Care Provided Minutes Spent on Discharge: 32 Hospital Course: 30-year-old female presents with shortness of breath that began on April 01. Shortness of breath got worse and patient presented to the emergency room where patient was noted to be hypoxic to 82% on room air. Jeannette ent had a COVID-19 PCR that was positive. Patient is unvaccinated. Patient was started on dexamethasone and has improved. Patient was ambulated in place in her room and pulse ox dropped down to 89%. At rest, patient has a pulse ox around 96%. Patient does not qualify for oxygen. Patient advised, given hypoxia, to quarantine for 20 days which will take her through 20 April. Patient has been around her family currently not sick but they are advised to quarantine for 10 days from the exposure with her. Patient will be discharged home in stable condition. Patient will be discharged with 8 more days of dexamethasone to complete a 10-day course of dexamethasone. Was patient is here she did not have a headache. Acetaminophen and ibuprofen were provided but offered minimal relief. Patient did receive ketorolac which resolved her migraine. Weight / BMI Weight Weight: 66.6 kg Body Mass Index (BMI) 25.2 ABG / Lab / Microbiology Data Result Diagrams: 04/06/21 06:34 04/06/21 06:34 Laboratory: Laboratory Results - last 24 hr 04/05/21 18:35: Serum , Qual NEGATIVE Microbiology: Microbiology 04/05/21 20:18 Mucosa - Nose SARS-CoV-2 Antigen (Rapid) - Final D/C Instructions Discharge Diet: No restrictions Return to work on: 04/20/21 Additional Activity Instructions: Self isolate for at least 20 days since symptoms began (04/01/2021-04/20/2021) AND at least one day (24 hours) have passed since resolution of fever without the use of fever-reducing agents AND improvement of symptoms (e.g., cough, shortness of breath) When around people in the same room, wear a face mask. Individuals also in the room should wear a mask. If possible, use a different bathroom and bedroom. Perform adequate hand hygiene. Avoid sharing dishes, glasses, etc. Family members with close contact with you and/or positive for COVID-19 should follow these instructions. And quarantine for 10 days. Call your doctor if you observe: Fever of 101 or Higher and Shortness of breath Meaningful Use Info Meaningful Use Diagnoses (Choose all that apply): None applicable Discharge Plan Admission Admit Date/Time: 04/05/21 23:14 Primary Reason for Your Visit: COVID-19 Attending Provider: Guillermo Charles Primary Care Provider: Tan Hill Discharge Orders/Prescriptions Prescriptions: New acetaminophen [Tylenol] 325 mg Tablet 500 mg PO Q4H PRN PRN (Reason: Pain 1-10 Or Fever) Qty: 0 RF: 0 dexamethasone 2 mg Tablet 6 mg PO DAILY Qty: 8 RF: 0 ibuprofen 200 mg capsule 600 mg PO Q6H PRN (Reason: pain. headache) Qty: 1 RF: 0 Continued multivitamin [Multiple Vitamins] Tablet 1 tab PO DAILY RF: 0 cholecalciferol (vitamin D3) 25 mcg (1,000 unit) capsule 25 mcg PO DAILY RF: 0 Referrals / Follow Up: Tan Hill MD [Primary Care Provider] - Within 2 Weeks Disposition Disposition (needs filled in before D/C Order can be placed): Home, Self Care Charges/Coding Visit Charges Inpatient E&M: 82696 Disch Hosp
[2021-04-07 11:04] VITALS: RESP 18; O2SAT 93
== END 2021-04-07 11:40 | disposition home or self-care (01) | DRG 177 ==
LOC: ED 22:39 → MS3 23:21
PROVIDERS: Admitting Provider Family Medicine; Emergency Provider Emergency Medicine; PCP Family Medicine
DX: U07.1 COVID-19 (principal); J12.82 Pneumonia due to coronavirus disease 2019; R09.02 Hypoxemia; G43.909 Migraine, unspecified, not intractable, without status migrainosus
CPT/HCPCS: 36415; 71045; 80048; 80053; 84703; 85025; 87040; 87426; 87635; 94640; 94762; 99284; J7040; J7050; U0005; A4216; U0003

== ENCOUNTER → 2021-04-16 08:54 | Outpatient (CLI) | payer OTHER, SELFPAY ==
[2021-03-29 13:32] VITALS: BMI 28.5
[2021-04-06 01:04] VITALS: BMI 25.2
--- NOTE | 2021-04-16 08:57 | RAD_ITS ---
CLINICAL HISTORY: Female, 30 years old. Right shoulder pain and numbness of the arm. PROCEDURE: ARTHROGRAM - RIGHT SHOULDER CONSENT: The procedure as well as the benefits and possible complications including bleeding and infection were explained to the patient. Informed consent was obtained. FLUOROSCOPY TIME (if supplied): (57 seconds) minutes/seconds Injection Information: 10 cc of dilute Dotarem Number of images obtained: 3 TECHNIQUE: (All elements of maximal sterile barrier technique followed, including US elements as applicable) The patient was in the supine position. The overlying skin was prepped and draped in the usual sterile fashion. Following local anesthetic application and under direct fluoroscopic guidance, a 22-gauge spinal needle was placed into the shoulder joint. 2 cc of ISOVUE-300 was injected for confirmation. Following this, 10 cc of dilute MR contrast was injected. The patient tolerated the procedure well. RAD/Arthrogram Shoulder w/ MRI IMPRESSION: Successful right shoulder arthrogram. The patient tolerated the procedure well. Electronically Signed: Moreno Rowe MD at 9:53 EDT , Service support ,
[2021-04-16] MEDS: Lidocaine 2% (5ml sdv) 5 ML VIAL.MPF (09:23)
[2021-04-16] MEDS: Iopamidol 10 ML in Syringe 1 EACH 600 ML IV (09:25)
--- NOTE | 2021-04-16 10:00 | MRI_ITS ---
STUDY: MR RIGHT SHOULDER ARTHROGRAPHY REASON FOR EXAM: Right shoulder pain, numbness and tingling in right arm and fingers, right shoulder injury 1 month ago. TECHNIQUE: Standardized fat and water weighted pulse sequences were obtained in all 3 orthogonal planes after intra-articular instillation of dilute Dotarem. COMPARISON: Radiographs 03/29/2021. FINDINGS: There is a small linear non retracted full-thickness tear of the distal supraspinatus tendon (T1 coronal series 7 image 13). Normal infraspinatus tendon. Normal subscapularis tendon. Normal teres minor tendon. Normal supraspinatus muscle. Normal infraspinatus muscle. Normal subscapularis muscle. Normal teres minor muscle. Normal glenohumeral articulation. Normal humeral head and visualized proximal humerus. Normal biceps labral complex. Normal intracapsular long biceps tendon. Normal labrum. Normal capsulo- ligamentous complex. Normal acromioclavicular articulation. There is a Type II morphology (curved), with a neutral orientation. There is a very small volume of dilute contrast in the subacromial-subdeltoid bursa (T1 sagittal image 13) at the site of the supraspinatus tendon tear. Normal visualized coracohumeral and coracoacromial ligaments. Normal deltoid muscle. Normal trapezius muscle. MRI/Upper Ext Jt Only W/Contrast IMPRESSION: Small linear full-thickness tear of the supraspinatus tendon. No demonstrated labral tear/SLAP lesion. Electronically Signed: Gómez Franklin MD at 11:22 EDT Tel , Service support ,
== END ==
PROVIDERS: PCP Family Medicine; Referring Provider Orthopaedic Surgery; Visit Provider Orthopaedic Surgery
DX: S43.431A Superior glenoid labrum lesion of right shoulder, initial encounter (principal)
CPT/HCPCS: 23350; 73222; 77002; A9575; Q9967

== ENCOUNTER 2021-05-26 16:30 | Outpatient (RCR) | payer OTHER, SELFPAY ==
--- NOTE | 2021-04-27 18:49 | HP.PTEVAL_ITS ---
Patient's Visit Information FELICIA JAY is a 30 year old F referred to Physical Therapy by DB Khan with a diagnosis of R supraspinatus tear. Date of Evaluation: 04/27/21 Physical Therapist: Guillermo Duran DPT, OCS, CSCS - Visit Plan Frequency: 1-2x /Week Duration: 4-6 Weeks Plan: weekly x 3-6 for instruction in and progression of HEP to strengthen R shoulder and progress back to goals. phase3 3 next session and ensure pain decreasing adn ROM improving. then prone strength, elevation, diagonals and eventual return to chest, mil press and dumbells/bowflex workout. - Subjective Week of March 23 shoulder popped during [employer] workout class. Got tight at end of class and then the next morning muscles were seized up and could not move it really well. Went to chirporactor to loosen up shoulder and neck but did not help the shoulder. Went to doctor referred to ortho and was on steroids for a coupe weeks and antiinflammatory meds. Had arthrogram [facility] showed tear in supraspinatus tendon. Pain at the time was 8/10 and needed ice adn tens unit. Hand was numb. Has literally done nothing for a month and has RESTED. Now can feel hand but has intermittent numbness but pain much improved to 1/10 much of time but cleaning will make it worse to 5/10 for short duration. Sleep is not interrupted unless rolls on R. 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 Off since March 29 adn will be off until May 24. 75% better overall. Showering OK, bath OK. [place] dressing can hurt and is careful . Going behind her hurts and is slow. Hobbies include lifting at home whcih she is not doing. Will go back to [employer] when able. - Pain posterior R shoulder Pain Intensity (Out of 10): 1 Pain Intensity Range: 1, 5 - Objective Walks and trasnfers normal with fair arm swing adn no evidence of pain today. Posture is forward head and protracted scap B. Tender to touch infraspinatus muscle belly R and supraspinatus tendon insertion R. Full aROM B elbows and wrists with strength at 4+/5 adn no pain. L shoulder moves fully and freely with 4+ strength in shoulder and elbow. R shoulder has full ROM but painful arc on R and end range slowness and pain, hesitant slightly to lift. End range external rotation is present but painful, IR is full but increasing pain at end range. + HK, + neer, - sulcus, - drop arm and ext rotation lag test today. reflexes 2/3 bi and tri B. Cervical AROM is fulla nd without pain as is scapular ROM actively. - Balance/Special Test Scores Quick DASH Score: 25.0000 - Goals Goal 1:: Patient have full painfree AROM R shoulder without pain Goal Time Frame: 4-6 Weeks Goal 2:: I appropr painfree home strength to minimize future problems Goal Time Frame: 4-6 Weeks Goal 3:: Plan to return to work without limitations Goal Time Frame: 4-6 Weeks Goal 4:: Resume full upper body workout without pain Goal Time Frame: 4-6 Weeks Goal 5:: Quick Dash score of 15 or less Goal Time Frame: 4-6 Weeks - Rehabilitation Potential Physical Therapy Diagnosis: R RC tear with diminshed capabilities at work and hobbies. Rehabilitation Potential: Fair - Anticipated Interventions Patient/Client Instruction: Educate patient on: Condition, Plan of Care For the Purpose of:: To decrease pain, To increase ROM, To improve muscle pe rformance and motor function, To increase tolerance to activity/condition/position, To improve ability of physical actions for home/community/work/leisure Therapeutic Exercise to Include: Strength training, Postural training, Flexibilty training, Gait and locomotor training, Passive ROM, Active ROM For the Purpose of:: To decrease pain, To increase ROM, To improve nutrient delivery to tissue, To improve muscle performance and motor function, To increase tolerance to activity/condition/position Manual Therapy Techniques to Include: Mobilization, Passive ROM For the Purpose of:: To increase ROM Thank you for the opportunity to evaluate your patient. For Medicare and Medicare HMO plans, please review the plan of care and approve it. It will need to be FAXED BACK to us at [phone] for Medicare purposes. For Medicare only, by signing this I certify the plan of care. Please let me know if there are questions or concerns regarding this plan of care. Physician Signature: Date:
--- NOTE | 2021-05-26 17:14 | HP.PTDCSUM_ITS ---
It has been my pleasure to treat FELICIA JAY referred by DB Khan, with the diagnosis of R supraspinatus tear for a total of 4 visit(s). Discharge Date: 05/26/21 Please see the following information for a summary of their discharge status. Subjective: Back from vacation in [place]. did some exercises and her specific exercises this week. Went to [employer] and di modified burpees on wall. Did mil press with plate and ran with MB on R arm. Did squats with bar 64# and the position hurt. No other pain at vacation. Started work Monday and has to be careful lifting patient FW posterior R shoulder Pain Intensity (Out of 10): 1 % Improvement: 85 Objective/Function: Full aROM with only some pain end range of ext rotation in elevation, slight. strength is 4+/5 ER and IR at neutral. 4/5 LLA flexion and extension without much pain. Tolerating exercises well without pain after session. Pt feels like she can continue to strengthen at her home gym and will contact doctor if situation worsens. Goal 1:: Patient have full painfree AROM R shoulder without pain Goal Progress: Goal Met Goal 2:: I appropr painfree home strength to minimize future problems Goal Progress: Goal Met Goal 3:: Plan to return to work without limitations Goal Progress: Goal Met Goal 4:: Resume full upper body workout without pain Goal Progress: Progressing Goal 5:: Quick Dash score of 15 or less Goal Progress: Goal Met Plan: d/c to HEp, pt to call if problems with exercise or notify doctor if pain worsens again. Discharge Comments: Pt to contact doctor if pain worsens. If there are questions or concerns regarding this patient's physical therapy, please feel free to call me at [phone]. Thank you for the referral of this patient. Sincerely, Guillermo Duran, DPT, OCS, CSCS Balance/Gait/Functional tests - Balance/Special Test Scores Quick DASH Score: 9.0900
== END 2021-05-26 19:00 | disposition home or self-care (01) ==
LOC: PT 16:30
PROVIDERS: PCP Family Medicine; Referring Provider Physician Assistant; Visit Provider Physician Assistant
DX: S46.011D Strain of muscle(s) and tendon(s) of the rotator cuff of right shoulder, subsequent encounter (principal); M75.51 Bursitis of right shoulder
CPT/HCPCS: 97110; 97161; 97164

== ENCOUNTER → 2021-06-17 10:00 | Outpatient (CLI) | payer OTHER, SELFPAY ==
[2021-06-17 10:04] LABS: Mucous, Urine 0 SEEN /hpf (<or=2+)
[2021-06-17 10:45] LABS: Color, Urine Yellow (Yellow); Glucose, Dipstick Normal (Normal); Ketone-Dipstick Negative (Negative); Leukocyte Esterase-Dipstick 500 /ul (Negative); Nitrite-Dipstick Negative (Negative); Occult Blood-Urine 25 /ul (Negative); Protein-Dipstick 30 mg/dl (Negative); Urine Bilirubin Dipstick Negative (Negative); Urine Clarity Sl. Cloudy (Clear); Urine Urobilinogen Normal (Normal)
[2021-06-17 11:05] LABS: Bacteria 3+ /hpf (None Seen); Red Blood Cells-Urine 0-5 SEEN /hpf (0-5); Squamous Epithelial Cells - UA 0-5 SEEN /hpf (5-10); White Blood Cells 25-50 SEEN /hpf (0-5)
== END ==
PROVIDERS: PCP Family Medicine; Referring Provider Family Medicine; Visit Provider Family Medicine
DX: R30.0 Dysuria (principal)
CPT/HCPCS: 81001; 87086; 87088

== ENCOUNTER 2022-02-16 16:00 | Outpatient (RCR) | payer OTHER, SELFPAY ==
--- NOTE | 2022-01-18 11:50 | HP.PTEVAL_ITS ---
Patient's Visit Information FELICIA JAY is a 31 year old F referred to Physical Therapy by ANNA Morocho with a diagnosis of Right Knee Pain. Date of Evaluation: 01/18/22 Physical Therapist: Dayana Urrutia DPT - Visit Plan Frequency: 2x /Week Duration: 4 Weeks Plan: Focus on LE and core strength/stabilization and modality of US and TENS - Subjective Patient reports that she twisted her right knee in jujitsu about a month ago. She felt a pop in the knee- able to walk on it just hurt. She has locking when she sits for to long of a period of time. No pain with stand- more when its bent. Pain is located along the lateral aspect of the knee and posterior. No radiating pain. Describes the pain as sharp with certain movements and dull and achy when shes not pushing it. Does have mild N/T in the toes that comes and goes. Worst: 6/10 Agg: being bent and then standing up from bending, twisting. Eases: stay off of it - was doing ice/elevation which helped but has not been doing that recently. Best: 0/10. Jujutsu 3x a week- but since it bothers her she is only doing 1x a week (she is doing more wrestling/grappling at this point). Before the injury she was doing cardio (running and ellip) as well as strength training. When it locks she has to stand and slowly lower and sometimes it just pops and lets go. Has not had any x-rays or MRI as she needs PT prior to testing. Saw [facility] who sent her to PT- Dr. Hill is PCP. 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 Sleep: not disturbed. No orthotics. No other knee issues prior. Does not wear a brace. PMHx: none Meds: vitamins - Objective Posture: FH, RS- can correct but does not maintain. Gait: antalgic- decreased stance on the right LE with poor heel/toe due to ROM deficit. Stairs: asc/desc 8 recip with no HR- poor control with descent. SLS: 10-15 sec then LOB mild hip drop. HR/TR: able without pain. Palpation: tender along lateral joint line and posterior lateral joint. ROM: 0-130 degrees- pain at end range flexion and extension. Strength: Core: fair plus Hip: 4+/5 Knee: 4+/5 Ankle: 5/5. Flex: HS: mild Gastroc: moderate, Solues: moderate, Quad:mild. - Special Tests R Knee Cheryl - Meniscus: Positive R Knee Posterior Drawer - PCL: Positive R Knee Posterior Sag - PCL: Positive R Knee Valgus - MCL: Positive R Knee Varus - LCL: Positive - Balance/Special Test Scores Lower Extremity Functional Score: 67 - Goals Goal 1:: Patient will be I with HEP and progression Goal Time Frame: 4-6 Weeks Goal 2:: Patient will maintain proper posture t/o tx session to demo increased core s/s Goal Time Frame: 4-6 Weeks Goal 3:: Patient will report 80% improvement Goal Time Frame: 4-6 Weeks - Rehabilitation Potential Physical Therapy Diagnosis: Patient presents with hypomobility-she has decreased pain free ROM, LE and core strength/stabilization, flex and muscular endurance leading to increased pain with ADL's Rehabilitation Potential: Good - Anticipated Interventions Patient/Client Instruction: Educate patient on: Benefits of Fitness Program Therapeutic Exercise to Include: Strength training, Endurance training, Balance training, Coordination, Agility training, Body mechanics, Postural training, Flexibilty training, Gait and locomotor training, Neuromotor development, Dynamic Lumbar Stabilization, Scapular Strength/Stabilization For the Purpose of:: To improve muscle performance and motor function TENS: Yes Cryotherapy (ice pack, ice massage): Yes Thermo therapy (hot pack): Yes Ultrasound (thermal/non thermal): Yes Thank you for the opportunity to evaluate your patient. For Medicare and Medicare HMO plans, please review the plan of care and approve it. It will need to be FAXED BACK to us at [phone] for Medicare purposes. For Medicare only, by signing this I certify the plan of care. Please let me know if there are questions or concerns regarding this plan of care. Physician Signature: Date:
--- NOTE | 2022-02-16 16:16 | HP.PTDCSUM_ITS ---
It has been my pleasure to treat FELICIA JAY referred by KULWANT Morocho, with the diagnosis of Right Knee Pain for a total of 9 visit(s). Discharge Date: Please see the following information for a summary of their discharge status. Subjective: Patient reports that she is doing better- twisting is the only thing that still bothers her. Planting and then twisting. She has not been back to martial arts. She feels more confident on the leg and can continue the exercises as needed. right knee Pain Intensity (Out of 10): 0 % Improvement: 90 Objective/Function: Posture: good throughout. Gait: no deviation noted. SLS: 10-15 sec then LOB with no hip drop. HR/TR: able without pain. Palpation: not tender ROM: 0-130 degrees Strength: Core: fair plus Hip: 4+/5 Knee: 5/5 Ankle: 5/5. Flex: HS: mild Gastroc: mild, Solues: moderate, Quad:mild. Goal 1:: Patient will be I with HEP and progression Goal Progress: Goal Met Goal 2:: Patient will maintain proper posture t/o tx session to demo increased core s/s Goal Progress: Goal Met Goal 3:: Patient will report 80% improvement Goal Progress: Goal Met Plan: 02/16/22: Discharge to HEP. Focus on LE and core strength/stabilization and modality of US and TENS If there are questions or concerns regarding this patient's physical therapy, please feel free to call me at [phone]. Thank you for the referral of this patient. Sincerely, Dayana Urrutia, DPT Balance/Gait/Functional tests - Balance/Special Test Scores Lower Extremity Functional Score: 79
== END 2022-02-16 19:00 | disposition home or self-care (01) ==
LOC: PT 16:00
PROVIDERS: PCP Family Medicine; Referring Provider Nurse Practitioner Family; Visit Provider Nurse Practitioner Family
DX: M25.569 Pain in unspecified knee (principal)
CPT/HCPCS: 97035; 97110; 97161; 97164

== ENCOUNTER → 2023-02-06 | Outpatient (CLI) | payer OTHER, SELFPAY ==
[2023-02-06 12:00] LABS: Vitamin D,25 Hydroxy 41.4 ng/mL
[2023-02-06 12:14] LABS: Estradiol 42.7 pg/mL; Follicle Stimulating Hormone 6.7 mIU/mL; Thyroid Stim Hormone (TSH) 1.13 uIU/mL (0.358-3.74)
== END | disposition home or self-care (01) ==
LOC: LAB 09:40
PROVIDERS: PCP Family Medicine; Referring Provider Obstetrics & Gynecology; Visit Provider Obstetrics & Gynecology
DX: R53.83 Other fatigue (principal); N95.1 Menopausal and female climacteric states; Z13.29 Encounter for screening for other suspected endocrine disorder; Z13.21 Encounter for screening for nutritional disorder
CPT/HCPCS: 36415; 82306; 82670; 83001; 84443

== ENCOUNTER → 2025-01-22 | Outpatient (CLI) | payer OTHER, SELFPAY | END | disposition home or self-care (01) | LOC: LABSPEC 16:05 | PROVIDERS: PCP Obstetrics & Gynecology; Referring Provider Advanced Practice Midwife; Visit Provider Advanced Practice Midwife | DX: Z12.4 Encounter for screening for malignant neoplasm of cervix (principal) | CPT/HCPCS: 87624; 88175; G0145 ==